=== PATIENT | male | born 1970 | race Caucasian/White ===

== ENCOUNTER 2021-06-04 23:43 | Emergency (ER) | payer MEDICAID ==
[~2021-06-04] VITALS: Ht 157.5 cm; Wt 81.6 kg
[2021-06-04 23:55] VITALS: BP 151/88
--- NOTE | 2021-06-05 | NUR ---
TO BED AMBULATORY
--- NOTE | 2021-06-05 00:58 | NUR ---
Dr. Reyes examining patient.
--- NOTE | 2021-06-05 01:00 | NUR ---
PT C/O HEADACHE 8/10 X1 DAY WITH DIZZINESS.
[2021-06-05] MEDS ORDERED: METOCLOPRAMIDE 10 MG TAB PO ONE (01:10)
[2021-06-05] MEDS ORDERED: KETOROLAC 30 MG/ML VIAL IM ONE (01:10)
[2021-06-05 02:29] VITALS: BP 123/70
--- NOTE | 2021-06-05 02:30 | NUR ---
Patient discharged with v/s stable. Written and verbal after care instructions given and explained. Patient verbalized understanding. Ambulatory with steady gait. All questions addressed prior to discharge. Advised to follow up with PMD.
== END 2021-06-05 02:30 | disposition home or self-care (01) ==
LOC: MED 23:43
DX: R51.9 Headache, unspecified (principal); R42 Dizziness and giddiness
CPT/HCPCS: 96372; 99283; J1885; J8597